=== PATIENT | female | born 1980 | race Two or more races ===

== ENCOUNTER 2020-09-26 13:27 | Emergency (ER) | payer BC ==
[~2020-09-26] VITALS: Ht 157.5 cm; Wt 86.2 kg
[2020-09-26] MEDS ORDERED: PERCOCET 5-3251 EACH PO (18:01)
[2020-11-01] MEDS ORDERED: ACETAMINOPHEN500 M2 (10:37)
== END 2020-09-26 18:11 | disposition home or self-care (01) ==
LOC: ER 13:27
DX: S52.591A Other fractures of lower end of right radius, initial encounter for closed fracture (principal); S52.611A Displaced fracture of right ulna styloid process, initial encounter for closed fracture; W18.09XA Striking against other object with subsequent fall, initial encounter; Y93.01 Activity, walking, marching and hiking; Y92.821 Forest as the place of occurrence of the external cause; Y99.8 Other external cause status